=== PATIENT | female | born 1945 | race Native Hawaiian/Other Pacific Islander ===

== ENCOUNTER 2017-02-05 13:50 | Outpatient (CLI) | payer OTHER, MEDICARE ==
[2017-02-05 14:35] LABS: PLATELET COUNT 228 K/uL (152-353)
[2017-02-05 15:08] LABS: POTASSIUM 4.8 mmol/L (3.6-5.2)
== END 2017-02-05 14:50 | disposition home or self-care (01) ==
LOC: LAB 13:50
PROVIDERS: Nurse Practitioner Family
DX: F41.8 Other specified anxiety disorders (principal); E55.9 Vitamin D deficiency, unspecified; E78.01 Familial hypercholesterolemia; Z79.899 Other long term (current) drug therapy; Z51.81 Encounter for therapeutic drug level monitoring
CPT/HCPCS: 80053; 80061; 82306; 82607; 83036; 84436; 84443; 85027

== ENCOUNTER 2017-02-16 10:20 | Outpatient (CLI) | payer OTHER, MEDICARE | END 2017-02-16 19:27 | disposition home or self-care (01) | LOC: MAMMO 10:20 | DX: Z12.31 Encounter for screening mammogram for malignant neoplasm of breast (principal); Z13.820 Encounter for screening for osteoporosis | CPT/HCPCS: G0202-TC ==

== ENCOUNTER 2017-03-26 08:58 | Outpatient (CLI) | payer OTHER, MEDICARE | END 2017-03-26 18:59 | disposition home or self-care (01) | LOC: US 08:58 | DX: R09.89 Other specified symptoms and signs involving the circulatory and respiratory systems (principal) ==

== ENCOUNTER 2017-08-24 08:01 | Outpatient (CLI) | payer OTHER ==
[2017-08-24 08:15] LABS: PLATELET COUNT 250 K/uL (152-353)
[2017-08-24 08:42] LABS: POTASSIUM 4.3 mmol/L (3.6-5.2)
== END 2017-08-24 21:07 | disposition home or self-care (01) ==
LOC: LABW 08:01
PROVIDERS: Internal Medicine Cardiovascular Disease
DX: E78.4 Other hyperlipidemia (principal); Z79.899 Other long term (current) drug therapy; Z51.81 Encounter for therapeutic drug level monitoring
CPT/HCPCS: 36415; 80048; 80061; 80076; 85027

== ENCOUNTER 2018-01-07 13:55 | Outpatient (CLI) | payer OTHER ==
[2018-01-07 14:51] LABS: PLATELET COUNT 273 K/uL (152-353)
[2018-01-07 17:11] LABS: POTASSIUM 4.1 mmol/L (3.6-5.2)
== END 2018-01-07 20:12 | disposition home or self-care (01) ==
LOC: LAB 13:55
PROVIDERS: Nurse Practitioner Family
DX: I10 Essential (primary) hypertension (principal); F41.8 Other specified anxiety disorders; Z79.899 Other long term (current) drug therapy; E78.01 Familial hypercholesterolemia; Z51.81 Encounter for therapeutic drug level monitoring
CPT/HCPCS: 80053; 80061; 83036; 84436; 84443; 85027

== ENCOUNTER 2018-02-18 08:22 | Outpatient (CLI) | payer OTHER | END 2018-02-18 19:48 | disposition home or self-care (01) | LOC: MAMMO 08:22 | DX: Z12.31 Encounter for screening mammogram for malignant neoplasm of breast (principal) ==

== ENCOUNTER 2018-11-27 02:10 | Emergency (ER) | payer OTHER ==
[~2018-11-27] VITALS: Ht 154.9 cm; Wt 73.0 kg
[2018-11-27 02:15] VITALS: TEMP 98
[2018-11-27 03:31] LABS: PLATELET COUNT 222 K/uL (152-353)
[2018-11-27 04:57] VITALS: BP 125/41
== END 2018-11-27 04:58 | disposition home or self-care (01) ==
LOC: ED 02:10
PROVIDERS: Emergency Medicine
DX: N39.0 Urinary tract infection, site not specified (principal); N23 Unspecified renal colic; R10.84 Generalized abdominal pain
CPT/HCPCS: 80053; 81002; 85027; 87086; 87088; 96365; 99284; J1885

== ENCOUNTER 2019-03-10 12:38 | Outpatient (CLI) | payer OTHER | END 2019-03-10 23:59 | disposition home or self-care (01) | LOC: MAMMO 12:38 | DX: Z12.31 Encounter for screening mammogram for malignant neoplasm of breast (principal) ==

== ENCOUNTER 2019-09-12 09:28 | Outpatient (CLI) | payer OTHER ==
[2019-09-12 13:19] LABS: PLATELET COUNT 311 K/uL (152-353)
[2019-09-12 14:18] LABS: POTASSIUM 4.7 mmol/L (3.6-5.2)
== END 2019-09-12 21:34 | disposition home or self-care (01) ==
LOC: RAD 09:28 → LAB 09:28 → RAD 21:34
PROVIDERS: Nurse Practitioner Family
DX: Z00.00 Encounter for general adult medical examination without abnormal findings (principal); M25.551 Pain in right hip; M54.89 Other dorsalgia; I10 Essential (primary) hypertension; F41.8 Other specified anxiety disorders; Z79.899 Other long term (current) drug therapy; E78.01 Familial hypercholesterolemia; N39.0 Urinary tract infection, site not specified; E55.9 Vitamin D deficiency, unspecified
CPT/HCPCS: 80053; 80061; 82306; 83036; 84439; 84443; 85027

== ENCOUNTER 2019-09-13 10:08 | Outpatient (CLI) | payer OTHER | END 2019-09-13 21:58 | disposition home or self-care (01) | LOC: US 10:08 | DX: K45.8 Other specified abdominal hernia without obstruction or gangrene (principal) ==

== ENCOUNTER 2019-09-28 13:01 | Outpatient (CLI) | payer OTHER ==
[2019-09-28 13:34] LABS: POTASSIUM 5.3 mmol/L (3.6-5.2)
== END 2019-09-28 19:24 | disposition home or self-care (01) ==
LOC: LAB 13:01
PROVIDERS: Nurse Practitioner Family
DX: N28.89 Other specified disorders of kidney and ureter (principal)
CPT/HCPCS: 80053

== ENCOUNTER 2020-01-24 15:24 | Outpatient (CLI) | payer OTHER ==
[2020-01-24 16:06] LABS: PLATELET COUNT 285 K/uL (152-353)
[2020-01-24 16:56] LABS: POTASSIUM 4.8 mmol/L (3.6-5.2)
== END 2020-01-24 20:40 | disposition home or self-care (01) ==
LOC: LAB 15:24
PROVIDERS: Nurse Practitioner Family
DX: Z00.00 Encounter for general adult medical examination without abnormal findings (principal); I10 Essential (primary) hypertension; E78.01 Familial hypercholesterolemia; F41.8 Other specified anxiety disorders; N28.89 Other specified disorders of kidney and ureter; Z79.899 Other long term (current) drug therapy; M54.89 Other dorsalgia; R73.09 Other abnormal glucose
CPT/HCPCS: 80053; 80061; 81000; 82306; 82607; 83036; 84439; 84443; 84481; 85027

== ENCOUNTER 2020-03-07 08:47 | Outpatient (CLI) | payer OTHER | END 2020-03-07 19:42 | disposition home or self-care (01) | LOC: US 08:47 | DX: N18.4 Chronic kidney disease, stage 4 (severe) (principal) ==

== ENCOUNTER 2020-03-19 08:47 | Outpatient (CLI) | payer OTHER ==
[2020-03-19 09:53] LABS: PLATELET COUNT 305 K/uL (152-353)
[2020-03-19 10:11] LABS: POTASSIUM 4.4 mmol/L (3.6-5.2)
== END 2020-03-19 19:09 | disposition home or self-care (01) ==
LOC: LABW 08:47
PROVIDERS: Internal Medicine
DX: N18.4 Chronic kidney disease, stage 4 (severe) (principal); D64.89 Other specified anemias; E53.8 Deficiency of other specified B group vitamins
CPT/HCPCS: 36415; 80053; 81000; 82043; 82306; 82330; 82570; 82607; 82728; 82746; 83540; 83550; 83735; 83970; 84100; 84155; 84439; 84443; 85027; 85651; 86038

== ENCOUNTER 2020-04-05 08:34 | Outpatient (CLI) | payer OTHER | END 2020-04-05 23:01 | disposition home or self-care (01) | LOC: CT 08:34 | DX: N13.39 Other hydronephrosis (principal) ==

== ENCOUNTER 2020-04-19 09:42 | Outpatient (CLI) | payer OTHER ==
[2020-04-19 10:02] LABS: PLATELET COUNT 227 K/uL (152-353)
[2020-04-19 10:30] LABS: POTASSIUM 4.5 mmol/L (3.6-5.2)
== END 2020-04-19 23:30 | disposition home or self-care (01) ==
LOC: LABW 09:42
PROVIDERS: Nurse Practitioner
DX: N18.4 Chronic kidney disease, stage 4 (severe) (principal)
CPT/HCPCS: 36415; 80053; 81000; 82306; 82330; 83735; 83970; 84100; 85027

== ENCOUNTER 2020-06-04 12:59 | Outpatient (CLI) | payer OTHER | END 2020-06-04 19:10 | disposition home or self-care (01) | LOC: LAB 12:59 | DX: R50.9 Fever, unspecified (principal); R52 Pain, unspecified; Z11.59 Encounter for screening for other viral diseases | CPT/HCPCS: 87635; G2023; U0003 ==

== ENCOUNTER 2020-07-03 10:45 | Outpatient (CLI) | payer OTHER ==
[~2020-07-03] VITALS: Ht 152.4 cm; Wt 66.7 kg
[2020-07-03 11:10] VITALS: BP 125/49; TEMP 98.1
[2020-07-03 11:22] LABS: PLATELET COUNT 265 K/uL (152-353)
[2020-07-03 12:36] LABS: POTASSIUM 5.1 mmol/L (3.6-5.2)
== END 2020-07-03 19:56 | disposition home or self-care (01) ==
LOC: INF 10:45
PROVIDERS: ATTEND Internal Medicine
DX: N18.4 Chronic kidney disease, stage 4 (severe) (principal); D50.8 Other iron deficiency anemias; E53.8 Deficiency of other specified B group vitamins
CPT/HCPCS: 36415; 36591; 80053; 81000; 82306; 82330; 82607; 82728; 82746; 83540; 83550; 83735; 83970; 84100; 85027; 96360; 96361

== ENCOUNTER 2020-07-18 10:00 | Inpatient (IN) | payer OTHER ==
[~2020-07-18] VITALS: Ht 152.4 cm; Wt 66.0 kg
[2020-07-18 20:00] VITALS: BP 139/49; TEMP 100.1
[2020-07-19 15:45] VITALS: BP 179/85; TEMP 98.6; Ht 152.4 cm; Wt 66.0 kg
[2020-07-19 20:00] VITALS: BP 134/97; TEMP 98.4
[2020-07-20 08:00] VITALS: BP 182/82; TEMP 98.2
[2020-07-20 20:00] VITALS: BP 179/84; TEMP 98
[2020-07-21 08:00] VITALS: BP 165/75; TEMP 97.6
[2020-07-21 20:00] VITALS: BP 131/82; TEMP 97.9
[2020-07-22 08:00] VITALS: BP 154/97; TEMP 99.1
== END 2020-07-22 12:30 | disposition home or self-care (01) | DRG 688 ==
LOC: MED/SURG 10:00
PROVIDERS: ADMIT Internal Medicine; ATTEND Internal Medicine
DX: C66.9 Malignant neoplasm of unspecified ureter (principal)
CPT/HCPCS: 81000